=== PATIENT | female | born 1980 | race African-American/Black ===

== ENCOUNTER 2018-05-10 13:13 | Emergency (ER) | payer MEDICAID ==
[~2018-05-10] VITALS: Ht 165.1 cm; Wt 72.9 kg
[2018-05-10] MEDS ORDERED: MORPHINE SULFATE 10 MG/ML CPJ IM ONE (15:00)
[2018-05-10] MEDS ORDERED: DOXYCYCLINE HYCLATE 100MG CAPSULE PO ONE (15:00)
[2018-05-10] MEDS ORDERED: ONDANSETRON 4MG ODT PO ONE (15:00)
[2018-05-10 18:09] VITALS: BP 128/91
== END 2018-05-10 18:11 | disposition home or self-care (01) ==
LOC: ER 13:59
DX: L73.2 Hidradenitis suppurativa (principal); L02.412 Cutaneous abscess of left axilla; L02.411 Cutaneous abscess of right axilla; F17.200 Nicotine dependence, unspecified, uncomplicated; Z88.0 Allergy status to penicillin; Z88.1 Allergy status to other antibiotic agents
CPT/HCPCS: 81025; 96372; 99283; J2270; Q0162

== ENCOUNTER 2018-06-08 00:22 | Emergency (ER) | payer MEDICAID ==
[~2018-06-08] VITALS: Ht 165.1 cm; Wt 75.0 kg
[2018-06-08 05:06] VITALS: BP 115/80
== END 2018-06-08 05:11 | disposition home or self-care (01) ==
LOC: ER 00:22
DX: L20.9 Atopic dermatitis, unspecified (principal); F17.210 Nicotine dependence, cigarettes, uncomplicated; Z88.1 Allergy status to other antibiotic agents; Z88.0 Allergy status to penicillin
CPT/HCPCS: 99283

== ENCOUNTER 2018-06-19 12:28 | Emergency (ER) | payer MEDICAID ==
[~2018-06-19] VITALS: Ht 165.1 cm; Wt 77.0 kg
[2018-06-19 12:50] VITALS: BP 134/89
== END 2018-06-19 17:49 | disposition left against medical advice (07) ==
LOC: ER 12:28
DX: Z53.21 Procedure and treatment not carried out due to patient leaving prior to being seen by health care provider (principal)

== ENCOUNTER 2018-07-21 18:44 | Emergency (ER) | payer MEDICAID ==
[~2018-07-21] VITALS: Ht 165.1 cm; Wt 73.0 kg
[2018-07-21] MEDS ORDERED: FAMOTIDINE 20MG TABLET PO ONE (21:15)
[2018-07-21] MEDS ORDERED: ONDANSETRON 4MG ODT PO ONE (21:15)
[2018-07-21 22:33] LABS: CLARITY URINE CLOUDY (CLEAR); COLOR URINE DARK YELLOW (YELLOW); KETONES URINE 1+ (NEGATIVE); LEUKOCYTE ESTERASE URINE TRACE (NEGATIVE); NITRITE URINE NEGATIVE (NEGATIVE); OCCULT BLOOD URINE NEGATIVE (NEGATIVE); PH URINE 7.5 (4.5-8.0); PROTEIN URINE 1+ (NEGATIVE); SPECIFIC GRAVITY URINE 1.032 (1.005-1.030)
[2018-07-21 23:00] LABS: BASOPHILS % 1.2 % (0.0-2.0); CHLORIDE 100 mEq/L (98-107); EOSINOPHILS % 3.2 % (0.0-5.0); HEMATOCRIT. 38.9 % (36.0-48.0); HEMOGLOBIN. 13.1 g/dL (12.0-16.0); LYMPHOCYTES % 32.8 % (20.0-50.0); MEAN CORPUSCULAR HEMOGLOBIN 30.4 pg (28.0-32.0); MEAN CORPUSCULAR VOLUME 90.1 fL (81.0-99.0); MEAN PLATELET VOLUME 8.4 fl (7.4-10.4); MONOCYTES % 8.5 % (2.0-8.0); NEUTROPHILS % 54.3 % (40.0-76.0); PLATELET 128 x1000/uL (130-400); RED BLOOD CELL COUNT 4.32 mill/uL (4.2-5.4); RED CELL DISTRIBUTION WIDTH 15.3 % (11.6-14.6)
[2018-07-22 02:37] VITALS: BP 139/89
== END 2018-07-22 02:39 | disposition home or self-care (01) ==
LOC: ER 18:44
DX: K29.70 Gastritis, unspecified, without bleeding (principal); Z88.0 Allergy status to penicillin; Z88.1 Allergy status to other antibiotic agents
CPT/HCPCS: 36415; 76705; 80053; 81003; 81025; 85025; 99284; Q0162

== ENCOUNTER 2019-08-16 18:39 | Emergency (ER) | payer MEDICAID ==
[~2019-08-16] VITALS: Ht 172.7 cm; Wt 78.0 kg
[2019-08-16] MEDS ORDERED: ACETAMINOPHEN WITH CODEINE 300/30MG TABLET PO ONE (22:15)
[2019-08-16 22:25] VITALS: BP 125/74
== END 2019-08-16 22:49 | disposition home or self-care (01) ==
LOC: ER 18:39
DX: K08.89 Other specified disorders of teeth and supporting structures (principal); F12.10 Cannabis abuse, uncomplicated; Z88.1 Allergy status to other antibiotic agents; Z88.0 Allergy status to penicillin
CPT/HCPCS: 99282

== ENCOUNTER 2019-09-23 13:19 | Emergency (ER) | payer MEDICAID ==
[~2019-09-23] VITALS: Ht 167.6 cm; Wt 77.0 kg
[2019-09-23 13:30] VITALS: BP 121/83
== END 2019-09-23 14:27 | disposition home or self-care (01) ==
LOC: ER 13:19
DX: R21 Rash and other nonspecific skin eruption (principal); F12.10 Cannabis abuse, uncomplicated; Z88.0 Allergy status to penicillin; Z88.1 Allergy status to other antibiotic agents
CPT/HCPCS: 99283

== ENCOUNTER 2020-11-23 06:15 | Emergency (ER) | payer MEDICAID, OTHER ==
[~2020-11-23] VITALS: Ht 165.1 cm; Wt 72.0 kg
[2020-11-23] MEDS ORDERED: IBUP-2030 PO (07:12)
[2020-11-23] MEDS ORDERED: CLIN300C12 PO (07:12)
[2020-11-23] MEDS ORDERED: T3 PO (07:12)
[2020-11-23] MEDS ORDERED: KETOROLAC 60MG/2ML VIAL IM ONE (07:15)
[2020-11-23 07:20] VITALS: BP 145/98
== END 2020-11-23 07:40 | disposition home or self-care (01) ==
LOC: ER 06:15
DX: K04.7 Periapical abscess without sinus (principal); F12.10 Cannabis abuse, uncomplicated; Z88.1 Allergy status to other antibiotic agents; Z88.0 Allergy status to penicillin
CPT/HCPCS: 96372; 99283; J1885

== ENCOUNTER 2021-10-21 13:52 | Emergency (ER) | payer MEDICAID ==
[~2021-10-21] VITALS: Ht 165.1 cm; Wt 68.0 kg
[~2021-10-21 13:52] MED LIST: CLIN-194 PO; IBUP-2030 PO; T3 PO
[2021-10-21] MEDS ORDERED: SODIUM CHLORIDE 0.9% 1,000 ML IV ONE (14:15)
[2021-10-21] MEDS ORDERED: KETOROLAC 30MG/ML VIAL IV NR (14:15)
[2021-10-21] MEDS ORDERED: KETOROLAC 30MG/ML VIAL IV ONE (14:15)
[2021-10-21 16:45] LABS: BASOPHILS % 0.9 % (0.0-2.0); EOSINOPHILS % 2.5 % (0.0-5.0); HEMATOCRIT. 42.8 % (36.0-48.0); HEMOGLOBIN. 14.3 g/dL (12.0-16.0); LYMPHOCYTES % 19.5 % (20.0-50.0); MEAN CORPUSCULAR HEMOGLOBIN 28.4 pg (28.0-32.0); MEAN PLATELET VOLUME 8.1 fl (7.4-10.4); NEUTROPHILS % 68.1 % (40.0-76.0); PLATELET 245 x1000/uL (130-400); RED BLOOD CELL COUNT 5.03 mill/uL (4.2-5.4); RED CELL DISTRIBUTION WIDTH 14.5 % (11.6-14.6)
[2021-10-21 16:54] LABS: CHLORIDE 102 mEq/L (98-107)
[2021-10-21 17:31] LABS: CLARITY URINE CLEAR (CLEAR); COLOR URINE YELLOW (YELLOW); KETONES URINE NEGATIVE (NEGATIVE); LEUKOCYTE ESTERASE URINE TRACE (NEGATIVE); NITRITE URINE NEGATIVE (NEGATIVE); OCCULT BLOOD URINE NEGATIVE (NEGATIVE); PH URINE 5.5 (4.5-8.0); PROTEIN URINE NEGATIVE (NEGATIVE); SPECIFIC GRAVITY URINE 1.026 (1.005-1.030)
[2021-10-21] MEDS ORDERED: DOCU100T PO (19:00)
[2021-10-21] MEDS ORDERED: POLY17PO43 PO (19:00)
[2021-10-21] MEDS ORDERED: NAPR-681 PO (19:00)
[2021-10-21 19:22] VITALS: BP 137/85
== END 2021-10-21 19:25 | disposition home or self-care (01) ==
LOC: ER 14:47
DX: R10.32 Left lower quadrant pain (principal); K57.30 Diverticulosis of large intestine without perforation or abscess without bleeding; F12.10 Cannabis abuse, uncomplicated; Z79.899 Other long term (current) drug therapy
CPT/HCPCS: 36415; 71045; 74176; 80053; 81003; 81025; 83690; 85025; 96361; 96374; 96375; 99285; J1885; J7030

== ENCOUNTER 2021-12-28 17:38 | Emergency (ER) | payer MEDICAID, OTHER ==
[~2021-12-28] VITALS: Ht 167.6 cm; Wt 66.0 kg
[~2021-12-28 17:38] MED LIST changes: +DOCU100T PO; +NAPR-681 PO; +POLY17PO43 PO
[2021-12-28 17:56] VITALS: BP 144/100
== END 2021-12-29 04:19 | disposition left against medical advice (07) ==
LOC: ER 17:38
DX: Z53.21 Procedure and treatment not carried out due to patient leaving prior to being seen by health care provider (principal)

== ENCOUNTER 2021-12-29 18:14 | Emergency (ER) | payer OTHER ==
[~2021-12-29] VITALS: Ht 165.1 cm; Wt 78.0 kg
[2021-12-29 18:16] VITALS: BP 148/100
== END 2021-12-30 01:54 | disposition left against medical advice (07) ==
LOC: ER 18:14
DX: Z53.21 Procedure and treatment not carried out due to patient leaving prior to being seen by health care provider (principal)

== ENCOUNTER 2022-08-20 06:41 | Emergency (ER) | payer OTHER ==
[~2022-08-20] VITALS: Ht 165.1 cm; Wt 64.0 kg
[2022-08-20 07:25] VITALS: BP 121/80
[2022-08-20] MEDS ORDERED: BACITRACIN ZINC OINT UDPKT TOP ONE (08:30)
[2022-08-20] MEDS ORDERED: LIDOCAINE HCL/EPINEPHRINE 1%-EPI 1:100,000 30 ML VIAL INFIL NR (08:30)
[2022-08-20] MEDS ORDERED: LIDOCAINE HCL/EPINEPHRINE 1%-EPI 1:100,000 20 ML VIAL INFIL ONE (08:30)
[2022-08-20] MEDS ORDERED: TETANUS, DIPHTHERIA, PERTUSSIS VAC/PF 0.5ML (>10YR OLD) IM ONE (08:30)
[2022-08-20] MEDS ORDERED: ACETAMINOPHEN 325MG TABLET PO NR (08:45)
[2022-08-20] MEDS ORDERED: SULF1TAB48 MT (11:58)
[2022-08-20] MEDS ORDERED: ACET-2708 MT (11:58)
== END 2022-08-20 12:34 | disposition home or self-care (01) ==
LOC: ER 06:41
DX: S81.012A Laceration without foreign body, left knee, initial encounter (principal); F12.90 Cannabis use, unspecified, uncomplicated; Z88.1 Allergy status to other antibiotic agents; Z88.5 Allergy status to narcotic agent; V29.99XA Rider (driver) (passenger) of other motorcycle injured in unspecified traffic accident, initial encounter; Y93.89 Activity, other specified; Y92.89 Other specified places as the place of occurrence of the external cause; Y99.8 Other external cause status
CPT/HCPCS: 12001; 73562; 81025; 90471; 90715; 99283; Z7610; J3490

== ENCOUNTER → 2022-09-07 | Emergency (ER) | payer MEDICAID, OTHER ==
[~2022-09-07] VITALS: Ht 165.1 cm; Wt 63.0 kg
[~2022-09-07] MED LIST changes: +ACET-2708 MT; +LEVOFLOXACIN 500MG PREMIX 100 ML IV ONE; +SULF1TAB48 MT; +VANCOMYCIN 1G PREMIX 200 ML IV SCH
[2022-09-07 11:01] VITALS: BP 106/75
== END ==
LOC: ER 10:52
DX: M79.605 Pain in left leg (principal); F12.10 Cannabis abuse, uncomplicated; Z88.0 Allergy status to penicillin; Z79.899 Other long term (current) drug therapy
CPT/HCPCS: 99281

== ENCOUNTER 2022-09-08 06:22 | Emergency (ER) | payer MEDICAID, OTHER ==
[~2022-09-08] VITALS: Ht 165.1 cm; Wt 71.0 kg
[~2022-09-08 06:22] MED LIST changes: -LEVOFLOXACIN 500MG PREMIX 100 ML IV ONE; -VANCOMYCIN 1G PREMIX 200 ML IV SCH
[2022-09-08] MEDS ORDERED: SODIUM CHLORIDE 0.9% 1000ML BAG (SEPSIS BOLUS) IV ONE (07:00)
[2022-09-08] MEDS ORDERED: VANCOMYCIN 1G PREMIX 200 ML IV SCH (07:00)
[2022-09-08 08:50] LABS: BASOPHILS % 0.4 % (0.0-2.0); EOSINOPHILS % 1.8 % (0.0-5.0); HEMOGLOBIN. 12.6 g/dL (12.0-16.0); LYMPHOCYTES % 10.6 % (20.0-50.0); MEAN CORPUSCULAR HEMOGLOBIN 27.1 pg (28.0-32.0); MEAN PLATELET VOLUME 8.9 fl (7.4-10.4); MONOCYTES % 11.9 % (2.0-8.0); NEUTROPHILS % 75.3 % (40.0-76.0); PLATELET 239 x1000/uL (130-400); RED BLOOD CELL COUNT 4.63 mill/uL (4.2-5.4); RED CELL DISTRIBUTION WIDTH 14.3 % (11.6-14.6)
[2022-09-08 08:57] LABS: CHLORIDE 101 mEq/L (98-107)
[2022-09-08 09:51] VITALS: BP 120/81
[2022-09-08 10:10] LABS: CLARITY URINE CLOUDY (CLEAR); COLOR URINE YELLOW (YELLOW); KETONES URINE NEGATIVE (NEGATIVE); LEUKOCYTE ESTERASE URINE 1+ (NEGATIVE); NITRITE URINE NEGATIVE (NEGATIVE); OCCULT BLOOD URINE NEGATIVE (NEGATIVE); PH URINE 5.5 (4.5-8.0); PROTEIN URINE 1+ (NEGATIVE); SPECIFIC GRAVITY URINE 1.019 (1.005-1.030)
[2022-09-08 10:41] LABS: PROTHROMBIN TIME 10.5 sec (9.6-11.0)
[2022-09-08] MEDS ORDERED: KETOROLAC 30MG/ML VIAL IV PRN (12:45)
[2022-09-08] MEDS ORDERED: ONDANSETRON HCL 4MG/2ML INJ IV PRN (12:45)
[2022-09-08] MEDS ORDERED: CEFTRIAXONE 1GM PREMIX 50 ML IV SCH ×2 (12:45→13:00)
[2022-09-08] MEDS ORDERED: VANCOMYCIN 750MG PREMIX 150 ML IV SCH (18:00)
== END 2022-09-08 13:34 | disposition left against medical advice (07) ==
LOC: ER 06:22 → CANBEDREQ 21:13
DX: L03.116 Cellulitis of left lower limb (principal); F12.10 Cannabis abuse, uncomplicated; Z88.0 Allergy status to penicillin; Z88.1 Allergy status to other antibiotic agents; Z79.899 Other long term (current) drug therapy
CPT/HCPCS: 36415; 71045; 80053; 81003; 83605; 84145; 84484; 85025; 85610; 87040; 93005; 93971; 96365; 99285; J3370; J7030

== ENCOUNTER 2023-09-03 01:24 | Emergency (ER) | payer MEDICAID ==
[~2023-09-03] VITALS: Ht 170.2 cm; Wt 73.0 kg
[~2023-09-03 01:24] MED LIST changes: +BO1 TP
[2023-09-03 01:37] VITALS: TEMP 98.1; O2SAT 98
[2023-09-03] MEDS: TETANUS, DIPHTHERIA, PERTUSSIS VAC/PF 0.5ML (>10YR OLD) IM ONE (02:42)
[2023-09-03] MEDS: MORPHINE SULFATE 4 MG/ML INJ (FOR IV/IM USE) IV ONE (02:53)
[2023-09-03] MEDS: LIDOCAINE HCL 1% 20ML VIAL INFIL ONE (02:53)
[2023-09-03] MEDS: ONDANSETRON HCL 4MG/2ML INJ IM ONE (02:53)
[2023-09-03] MEDS ORDERED: CIPR500T5 MT (04:43)
[2023-09-03 04:56] VITALS: BP 130/70; PULSE 80; RESP 15
== END 2023-09-03 05:34 | disposition home or self-care (01) ==
LOC: ER 01:24
DX: S91.311A Laceration without foreign body, right foot, initial encounter (principal); Z88.0 Allergy status to penicillin; Z88.1 Allergy status to other antibiotic agents; Z79.899 Other long term (current) drug therapy; V00.841A Fall from standing electric scooter, initial encounter; Y93.89 Activity, other specified; Y92.89 Other specified places as the place of occurrence of the external cause; Y99.8 Other external cause status
CPT/HCPCS: 73630; 73660; 90715; 12004; 90471; 96374; 99284; J3490; J2405; J2270; Z7610 ×5

== ENCOUNTER 2023-09-05 10:21 | Emergency (ER) | payer MEDICAID ==
[~2023-09-05] VITALS: Ht 165.1 cm; Wt 81.0 kg
[~2023-09-05 10:21] MED LIST changes: +CIPR500T5 MT
[2023-09-05 10:55] VITALS: O2SAT 99
[2023-09-05 11:01] VITALS: BP 103/69; PULSE 110; RESP 18; TEMP 98.1
== END 2023-09-05 11:30 | disposition home or self-care (01) ==
LOC: ER 11:26
DX: S91.311D Laceration without foreign body, right foot, subsequent encounter (principal); Z48.00 Encounter for change or removal of nonsurgical wound dressing; Z88.0 Allergy status to penicillin; Z88.1 Allergy status to other antibiotic agents; Z79.899 Other long term (current) drug therapy; X58.XXXD Exposure to other specified factors, subsequent encounter
CPT/HCPCS: 99281